=== PATIENT | male | born 1960 ===

== ENCOUNTER 2018-06-11 08:12 | Day surgery (SDC) | payer OTHER ==
[2018-06-11] MEDS ORDERED: ULTRACET PO (14:28)
[2018-06-11] MEDS ORDERED: MIRALAX17 GM PO (14:28)
[2018-06-11] MEDS ORDERED: ZOFRAN ODT4 MG PO (14:28)
== END 2018-06-11 16:40 | disposition home or self-care (01) ==
LOC: CIR.AMB 08:12
DX: K80.10 Calculus of gallbladder with chronic cholecystitis without obstruction (principal)